=== PATIENT | male | born 1940 | race Caucasian/White ===

== ENCOUNTER → 2018-07-30 | Outpatient (CLI) | payer MEDICARE, BC ==
[2018-07-30 16:31] LABS: BASOPHILS # (AUTO) 0.02 x10^3/uL (0-0.1); BASOPHILS % (AUTO) 0 % (0-1); EOSINOPHILS % (AUTO) 1 % (1-7); LYMPHOCYTES # (AUTO) 0.81 x10^3/uL (1-3.4); LYMPHOCYTES % (AUTO) 11 % (22-44); MD NO; MEAN CORPUSCULAR HEMOGLOBIN 31.8 pg (27.5-34.5); MEAN CORPUSCULAR VOLUME 96.4 fL (81-97); MEAN PLATELET VOLUME 7.3 fL (7.4-10.4); MONOCYTES # (AUTO) 0.73 x10^3/uL (0.2-0.8); MONOCYTES % (AUTO) 10 % (2-9); NEUTROPHILS # (AUTO) 5.72 x10^3/uL (1.8-6.8); NEUTROPHILS % (AUTO) 78 % (42-75); PLATELET COUNT 271 x10^3/uL (130-400); RED BLOOD COUNT 4.03 x10^6/uL (4.38-5.82); RED CELL DISTRIBUTION WIDTH 14.3 % (9.4-14.8)
== END | disposition home or self-care (01) ==
LOC: LAB 16:09
PROVIDERS: ATTEND Physician Assistant
DX: I48.0 Paroxysmal atrial fibrillation (principal)
CPT/HCPCS: 36415; 85025

== ENCOUNTER 2019-06-21 10:30 | Outpatient (CLI) | payer MEDICARE | END 2019-06-21 23:59 | disposition home or self-care (01) | LOC: STAR 10:30 | PROVIDERS: ATTEND Urology | DX: Z01.818 Encounter for other preprocedural examination (principal); N20.1 Calculus of ureter; I48.91 Unspecified atrial fibrillation; I44.7 Left bundle-branch block, unspecified | CPT/HCPCS: 36415; 80053; 81001; 87077; 87086; 87186; 93005 ==

== ENCOUNTER → 2021-02-01 | Outpatient (CLI) | payer MEDICARE ==
[~2021-02-01] MED LIST: CHOL5000 PO; DABI150C PO; DOXA4TAB3 PO; ECHI400C12 PO; FINA5TAB4 PO; KRIL1CAP7 PO; OLME1TAB28 PO; OMEG1CAP30 PO; SEA KELP PO; SPIR25TA5 PO; UBID1CAP43 PO; VERA240T10 PO; ginkgo biloba PO
== END | disposition home or self-care (01) ==
LOC: CVU 08:31
PROVIDERS: ATTEND Internal Medicine Cardiovascular Disease
DX: I08.8 Other rheumatic multiple valve diseases (principal); I11.9 Hypertensive heart disease without heart failure; I48.20 Chronic atrial fibrillation, unspecified
CPT/HCPCS: 93306